=== PATIENT | female | born 1955 | race Caucasian/White ===

== ENCOUNTER → 2016-05-11 | Outpatient (REF) ==
[2016-05-11 13:02] LABS: ALBUMIN 4.7 g/dL (3.4-5.0); ANION GAP 18.4 MEQ/L (3-15); CALCULATED IONIZED CALCIUM 4.2 mg/dL (3.8-4.6); TOTAL PROTEIN 7.9 g/dL (6.4-8.5)
== END ==
LOC: CLAB.BLUES 12:37
PROVIDERS: ATTEND Family Medicine
DX: E11.9 Type 2 diabetes mellitus without complications (principal)
CPT/HCPCS: 80053

== ENCOUNTER → 2016-05-15 | Outpatient (REF) ==
[2016-05-15 16:05] LABS: BASOPHILS % (AUTO) 0 % (0-2); EOSINOPHILS # (AUTO) 0.2 10^3uL; EOSINOPHILS % (AUTO) 4 % (0-4); LYMPHOCYTES # (AUTO) 1.4 X10^3; MEAN CORPUSCULAR HEMOGLOBIN 27.6 PG (26.0-34.0); MEAN CORPUSCULAR HGB CONC 34.9 g/dL (31.0-37.0); MONOCYTES # (AUTO) 0.5 X10^3; MONOCYTES % (AUTO) 9 % (3-11); NEUTROPHILS # (AUTO) 3.2 X10^3; NEUTROPHILS % (AUTO) 60 % (51-67); PLATELET COUNT 119 10^3uL (150-450); WHITE BLOOD COUNT 5.32 10^3uL (4.0-11.0)
[2016-05-15 16:09] LABS: MEAN CORPUSCULAR VOLUME 79 FL (80-100)
== END ==
LOC: CLAB.BLUES 14:36
PROVIDERS: ATTEND Family Medicine
DX: E11.9 Type 2 diabetes mellitus without complications (principal)
CPT/HCPCS: 83036; 85025

== ENCOUNTER → 2016-05-25 | Outpatient (REF) | LOC: LAB 11:02 | PROVIDERS: ATTEND Family Medicine | DX: E78.00 Pure hypercholesterolemia, unspecified (principal) | CPT/HCPCS: 80061 ==

== ENCOUNTER → 2016-07-13 | Outpatient (CLI) | payer OTHER | LOC: RAD 13:49 | PROVIDERS: ATTEND Family Medicine | DX: Z12.31 Encounter for screening mammogram for malignant neoplasm of breast (principal) ==

== ENCOUNTER → 2016-07-13 | Outpatient (REF) | LOC: EDSTATUS 13:30 → RAD 13:32 → CLAB.BLUES 13:37 | PROVIDERS: ATTEND Family Medicine | DX: Z53.9 Procedure and treatment not carried out, unspecified reason (principal) ==

== ENCOUNTER → 2016-08-14 | Outpatient (REF) ==
[2016-08-14 17:43] LABS: ALBUMIN 4.7 g/dL (3.4-5.0); CALCULATED IONIZED CALCIUM 4.3 mg/dL (3.8-4.6); TOTAL PROTEIN 7.8 g/dL (6.4-8.5)
== END ==
LOC: CLAB.BLUES 17:25
PROVIDERS: ATTEND Family Medicine
DX: E11.9 Type 2 diabetes mellitus without complications (principal)
CPT/HCPCS: 80053

== ENCOUNTER → 2016-08-17 | Outpatient (REF) | LOC: CLAB.BLUES 12:50 | PROVIDERS: ATTEND Family Medicine | DX: E11.9 Type 2 diabetes mellitus without complications (principal) | CPT/HCPCS: 82043 ==

== ENCOUNTER → 2016-09-07 | Outpatient (REF) ==
[2016-09-07 16:24] LABS: ANION GAP 20.3 MEQ/L (3-15)
== END ==
LOC: CLAB.BLUES 15:45
PROVIDERS: ATTEND Family Medicine
DX: E11.9 Type 2 diabetes mellitus without complications (principal); R80.9 Proteinuria, unspecified
CPT/HCPCS: 80048; 83036

== ENCOUNTER → 2016-09-11 | Outpatient (REF) ==
[2016-09-11 15:41] LABS: BILIRUBIN,URINE Negative (Negative); CLARITY,URINE Clear; GLUCOSE, URINE (UA) Negative (Negative); LEUKOCYTE ESTERASE, URINE Negative (Negative); PH,URINE 5.5 (5.0 - 8.0); UROBILINOGEN,URINE 0.2 mg/dL (0.2-1.0)
[2016-09-11 15:51] LABS: COLOR,URINE Light Yellow
== END ==
LOC: CLAB.BLUES 15:24
PROVIDERS: ATTEND Family Medicine
DX: R41.0 Disorientation, unspecified (principal)
CPT/HCPCS: 81003